=== PATIENT | male | born 1985 | race African-American/Black ===

== ENCOUNTER 2016-12-07 13:15 | Emergency (ER) | payer SELFPAY ==
[2016-12-07 13:27] VITALS: BP 156/101; BMI 28.2
== END 2016-12-07 15:05 | disposition left against medical advice (07) ==
LOC: ER 13:35
DX: M54.2 Cervicalgia (principal)
CPT/HCPCS: 99281

== ENCOUNTER 2016-12-07 22:41 | Emergency (ER) | payer SELFPAY ==
[2016-12-07 22:51] VITALS: BP 140/93; BMI 28.2
--- NOTE | 2016-12-07 23:40 | DR.GENAD ---
HPI - PCP Primary Care Physician: NFD - Complaint/Symptoms Chief Complaint Doctors Comments: Patient states that on yesterday was stung by a bee, took benadryl x2 doses.He denies SOB, wheezing or cough. There was no swelling of the throat. Chief Complaint:: PT STATES" I GOT BEE STUNG THURSDAY ON MY EAR AND IT KEEPS ON SWELLING BACK UP I NEED IT CHECKED OUT" - Source History Provided: Patient - Mode of Arrival Mode of Arrival: Ambulatory - Timing Onset of Chief Complaint: 12/06/16 PMH - PMH Past Medical History: Yes Past Medical History: Anxiety, Hypertension Past Surgical History: No - Family History History of Family Medical Conditions: Yes Family Medical History: Diabetes Mellitus, Hypertension - Social History Do you use any recreational Drugs:: Yes Lives With: Family Lives Where: Home - infectious screening In the last 2 months have you had wt loss of >10#?: NO Have you had fever, night sweats or hemotysis?: No Have you traveled outside the country in the last 6 months?: No Isolation: Standard ROS - Review of Systems Eyes: No Symptoms Reported ENTM: No Symptoms Reported Respiratoy: No Symptoms Reported Cardiovascular: No Symptoms Reported Gastrointestinal/Abdominal: No Symptoms Reported Genitourinary: No Symptoms Reported Neurological: No Symptoms Reported Musculoskeletal: No Symptoms Reported Integumentary: No Symptoms Reported Hematologic/Lymphatic: No Symptoms Reported Endocrine: No Symptoms Reported Psychiatric: No Symptoms Reported All Other Systems: Reviewed and Negative PE - Vital Signs Vitals: Temperature 98.1 F Pulse Rate 81 Respiratory Rate 18 Blood Pressure [Left Arm] 165/83 Blood Pressure 140/93 O2 Sat by Pulse Oximetry 100 - General Limitations: No Limitations General Appearance: Alert, In No Apparent Distress - Head Head Exam: Normal Inspection, Atraumatic - Eyes Eye exam: Normal Appearance, PERRL, EOMI - ENT ENT Exam: Normal Exam External Ear Exam: Normal External Inspection TM/Canal Exam: Bilateral Normal Nose Exam: Normal Nose Exam, Sinus Tenderness Mouth Exam: Normal Inspection Throat Exam: Normal Inspection - Neck Neck Exam: Normal Inspection - Chest Chest Inspection: Normal Inspection - Respiratory Respiratory Exam: Normal Lung Sounds Bilat Respiratory Exam: Bilateral Clear to Auscultation - Cardiovascular Cardiovascular Exam: Regular Rate, Normal Rhythm - Abdominal Exam Abdominal Exam: Normal Inspection, Normal Bowel Sounds Abdominal Tenderness: negative: RUQ, RLQ, LUQ, LLQ, Epigastrium, Suprapubic, Diffuse, Mild, Moderate, Severe, Other - Extremities Extremities Exam: Normal Inspection, Full ROM - Back Back Exam: Normal Inspection, Full ROM - Neurologic Neurological Exam: Alert, Oriented X3, CN II-XII Intact - Psychiatric Psychiatric Exam: Normal Affect - Skin Skin Exam: Warm, Dry, Intact - Diagnosis Discharge Problem: Bee sting Qualifiers: Encounter type: initial encounter Injury intent: accidental or unintentional Qualified Code(s): T63.441A - Toxic effect of venom of bees, accidental ( unintentional), initial encounter - Discharge Plan Condition: Stable - Follow ups/Referrals Follow ups/Referrals: NFD,None [Primary Care Provider] - 3 days - Instructions
== END 2016-12-08 00:21 | disposition home or self-care (01) ==
LOC: ER 22:41
DX: T63.441A Toxic effect of venom of bees, accidental (unintentional), initial encounter (principal)
CPT/HCPCS: 99281; 99282

== ENCOUNTER 2017-06-29 22:31 | Emergency (ER) | payer SELFPAY ==
[2017-06-29 22:40] VITALS: BMI 30.7
[2017-06-29] MEDS ORDERED: HYDROGEN PEROXIDE 3% ONE (22:55)
[2017-06-29] MEDS ORDERED: ZOFRAN INJ 4 MG VIAL IVP ONE (23:19)
[2017-06-29] MEDS ORDERED: NS 1000 ML 1,000 ML IV ONE (23:19)
[2017-06-29] MEDS ORDERED: MORPHINE SULFATE INJ 4 MG IVP ONE (23:19)
[2017-06-29] MEDS ORDERED: NS 1000 ML 1,000 ML ONE (23:20)
[2017-06-29] MEDS ORDERED: ZOFRAN INJ 4 MG VIAL ONE (23:20)
[2017-06-29] MEDS ORDERED: MORPHINE SULFATE INJ 4 MG ONE (23:20)
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
[2017-06-30 00:35] VITALS: BP 162/100
[2017-06-30 00:36] LABS: BASOPHILS % (AUTO) 0.2 % (0.2-1.0); EOSINOPHILS % (AUTO) 0.2 % (0.9-2.9); HEMATOCRIT 44.3 % (42.0-54.0); HEMOGLOBIN 15.1 g/dL (13.5-18.0); LYMPHOCYTES # (AUTO) 1.6 X10^3/uL (1.3-2.9); LYMPHOCYTES % (AUTO) 11.8 % (21.0-51.0); MEAN CORPUSCULAR HEMOGLOBIN 31.5 pg (27.0-34.0); MEAN CORPUSCULAR HGB CONC 34.2 g/dL (33.0-35.0); MEAN CORPUSCULAR VOLUME 92.2 fL (80.0-100.0); MEAN PLATELET VOLUME 7.8 fL (7.4-11.0); MONOCYTES % (AUTO) 7.1 % (0.0-13.0); NEUTROPHILS # (AUTO) 10.9 x10^3/uL (2.2-4.8); NEUTROPHILS % (AUTO) 80.7 % (42.0-75.0); PLATELET COUNT 303 X10^3/uL (150.0-450.0); RED CELL DISTRIBUTION WIDTH 14.4 % (11.6-16.5); WHITE BLOOD COUNT 13.5 X10^3/uL (3.6-10.0)
[2017-06-30 00:48] LABS: ALANINE AMINOTRANSFERASE 24 Units/L (12-78); ALBUMIN 3.9 g/dL (3.4-5.0); ALKALINE PHOSPHATASE 90 Units/L (46-116); ASPARTATE AMINO TRANSFERASE 17 Units/L (15-37); BLOOD UREA NITROGEN 8 mg/dL (7-18); CALCIUM 8.5 mg/dL (8.5-10.1); CARBON DIOXIDE 27.4 mmol/L (21-32); CHLORIDE 103 mmol/L (98-107); SODIUM 141 mmol/L (136-145); TOTAL PROTEIN 8.5 g/dL (6.4-8.2); eGFR BLACK RACES > 60 (>60); eGFR NON BLACK RACES > 60 (>60)
== END 2017-06-30 00:57 | disposition short-term general hospital (02) ==
LOC: ER 22:43
DX: S09.8XXA Other specified injuries of head, initial encounter (principal); S13.9XXA Sprain of joints and ligaments of unspecified parts of neck, initial encounter; S20.212A Contusion of left front wall of thorax, initial encounter; S20.219A Contusion of unspecified front wall of thorax, initial encounter; R07.89 Other chest pain; R10.10 Upper abdominal pain, unspecified; H92.02 Otalgia, left ear; R94.31 Abnormal electrocardiogram [ECG] [EKG]; E04.1 Nontoxic single thyroid nodule; Y04.0XXA Assault by unarmed brawl or fight, initial encounter; Y92.9 Unspecified place or not applicable
CPT/HCPCS: 36415; 70450; 71250; 72125; 74176; 80053; 85025; 93005; 93010; 96365; 96374; 96375; 99284; 99285; A4222; J2270; J2405

== ENCOUNTER 2017-06-30 22:43 | Emergency (ER) | payer SELFPAY ==
[2017-06-30 22:51] VITALS: BP 140/90; BMI 28.2
[2017-06-30] MEDS ORDERED: MORPHINE SULFATE INJ 4 MG IM ONE (23:04)
[2017-06-30] MEDS ORDERED: ZOFRAN INJ 4 MG VIAL IM ONE (23:04)
[2017-06-30] MEDS ORDERED: ZOFRAN INJ 4 MG VIAL ONE (23:05)
[2017-06-30] MEDS ORDERED: MORPHINE SULFATE INJ 4 MG ONE (23:06)
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
== END 2017-07-01 00:15 | disposition home or self-care (01) ==
LOC: ER 22:53
DX: S09.91 Unspecified injury of ear (principal); H92.02 Otalgia, left ear; G50.1 Atypical facial pain; R51 Headache; Y33.XXXA Other specified events, undetermined intent, initial encounter; Y92.9 Unspecified place or not applicable
CPT/HCPCS: 96372; 99282; J2270; J2405

== ENCOUNTER 2017-07-02 09:09 | Emergency (ER) | payer SELFPAY ==
[2017-07-02 09:19] VITALS: BMI 29.8
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
[2017-07-02] MEDS ORDERED: TORADOL 60 MG VIAL IM ONE (09:29)
[2017-07-02] MEDS ORDERED: NORFLEX INJ IM ONE (09:30)
[2017-07-02] MEDS ORDERED: NIFEDIPINE CAP 10 MG PO ONE (09:33)
[2017-07-02] MEDS ORDERED: TORADOL 60 MG VIAL ONE (09:39)
[2017-07-02] MEDS ORDERED: NORFLEX INJ ONE (09:39)
[2017-07-02] MEDS ORDERED: NIFEDIPINE CAP 10 MG ONE (09:40)
--- NOTE | 2017-07-02 10:25 | RAD ---
Examination: Left elbow, three views History: Recent trauma Findings: There is no evidence for fracture, dislocation or synovial distension. Impression: No acute findings left elbow. Reported By:
--- NOTE | 2017-07-02 11:09 | CT ---
HISTORY: Neck pain Study: CT cervical spine without contrast Comparison: None Technique: Multiple axial images of the cervical spine were obtained from the skull base to the thora cic inlet without administration of IV contrast. Sagittal and coronal reformats were performed and r eviewed. Findings: The cervical vertebral body heights are relatively maintained. No evidence for acute cortical disrupt ion or significant subluxation can be seen. The central canal remains free of compromise from bony f ragments. The posterior elements appear unremarkable. The prevertebral soft tissues are normal in t heir appearance. In addition, the surrounding paraspinous soft tissues are unremarkable. If symptoms or clinical concern persist correlation with MRI may be helpful. IMPRESSION: 1. No evidence of acute osseous abnormality is appreciated. Reported By:
[2017-07-02 11:21] VITALS: BP 139/90
== END 2017-07-02 12:00 | disposition home or self-care (01) ==
LOC: ER 09:23
DX: S16.1XXS Strain of muscle, fascia and tendon at neck level, sequela (principal); S13.9XXS Sprain of joints and ligaments of unspecified parts of neck, sequela; S50.00XA Contusion of unspecified elbow, initial encounter; I10 Essential (primary) hypertension; M79.1 Myalgia; Y33.XXXA Other specified events, undetermined intent, initial encounter; Y92.9 Unspecified place or not applicable
CPT/HCPCS: 72125; 73070; 96372; 99282; J1885; J2360

== ENCOUNTER 2023-12-06 23:36 | Observation (INO) ==
[2023-12-06 23:46] VITALS: BMI 33.7
--- NOTE | 2023-12-06 23:55 | EKG ---
Test Reason : Chest pain Blood Pressure : */* mmHG Vent. Rate : 99 BPM Atrial Rate : 99 BPM P-R Int : 116 ms QRS Dur : 84 ms QT Int : 368 ms P-R-T Axes : 69 -15 18 degrees QTc Int : 472 ms Normal sinus rhythm Voltage criteria for left ventricular hypertrophy ( R in aVL , Sokolow-Rodriguez , [place] product ) Abnormal ECG When compared with ECG of 09-JUL-2023 10:18, Nonspecific T wave abnormality now evident in Lateral leads Confirmed by Mike Roque MD ([id number]) on 12/07/2023 6:05:42 AM Referred By: Confirmed By: Mike Roque MD
--- NOTE | 2023-12-07 00:11 | DR.CP ---
HPI Time Seen Time Seen by Provider: 12/07/23 00:10 PCP Primary Care Physician: Melissa Complaint Chief Complaint Doctor Comments: Patient states that he has been having pain in his left chest and rib area. Patient has had a cough productive of green sputum. Patient states that he has a h/o asthma. Patient stats that he has been taking his neb treatments.Patient is also wheezing.Patient states that his chest has been hurting x2 days. Patient denies: fever,n,v,dizziness,lightheadedness,abd pain. Chief Complaint:: pt states" for the past couple of days his left rib area and chest have been hurting. He also has felt chill and has been coughing up green phlegm as well." Self Treatment fo Chief Complaint: none COVID-19 Coronavirus risk:travel/contact w/high risk person: No Has patient experienced Coronavirus symptoms: Yes Coronavirus symptoms experienced: Coughing and Shortness of Breath Source History Provided: Patient and EMS Mode of Arrival Mode of Arrival: EMS Timing Onset of Chief Complaint: 12/04/23 PMH PMH Past Medical History: Yes Past Medical History: Anxiety, Coronary Artery Disease, Diabetes, Dyslipidemia, GERD, Hypertension and Schizophrenia Past Medical History Comment: bipolar Past Surgical History: Yes Surgical History: No History Family History History of Family Medical Conditions: Yes Family Medical History: Diabetes Mellitus, Cancer, Coronary Artery Disease and Hypertension Social History Type of Tobacco Use: Cigarettes Alcohol Use: Occasionally Do you use any recreational Drugs:: No Lives With: Family Lives Where: Home Travel Risk Coronavirus risk:travel/contact w/high risk person: No Has patient experienced Coronavirus symptoms: Yes Coronavirus symptoms experienced: Coughing and Shortness of Breath Infectious screening In the last 2 months have you had wt loss of >10#?: NO Have you had fever, night sweats or hemotysis?: No Have you traveled outside the country in the last 6 months?: No Isolation: Standard ROS Review of Systems Constitutional: No Symptoms Reported Eyes: No Symptoms Reported ENTM: No Symptoms Reported Respiratoy: Productive Cough (green sputum) and Wheezing Cardiovascular: Chest Pain Gastrointestinal/Abdominal: No Symptoms Reported Genitourinary: No Symptoms Reported Neurological: No Symptoms Reported Musculoskeletal: No Symptoms Reported Integumentary: No Symptoms Reported Hematologic/Lymphatic: No Symptoms Reported Endocrine: No Symptoms Reported Psychiatric: No Symptoms Reported All Other Systems: Reviewed and Negative PE Vitals Vitals: Vital Signs Temperature 97.8 F Pulse Rate 84 Pulse Rate 86 Pulse Rate 82 Pulse Rate 97 Pulse Rate 87 Pulse Rate 89 Pulse Rate 86 Pulse Rate 86 Pulse Rate 88 Pulse Rate 98 Pulse Rate 89 Pulse Rate 88 Pulse Rate 88 Pulse Rate 86 Pulse Rate 93 Pulse Rate 90 Pulse Rate 93 Pulse Rate 89 Pulse Rate 91 Pulse Rate 101 Pulse Rate 70 Pulse Rate 73 Pulse Rate 89 Pulse Rate 91 Pulse Rate 89 Pulse Rate 90 Pulse Rate 91 Pulse Rate 98 Pulse Rate 103 Respiratory Rate 20 Blood Pressure [Left Arm] 179/79 Blood Pressure 154/102 Blood Pressure 142/88 Blood Pressure 152/87 Blood Pressure 139/83 Blood Pressure 175/109 Blood Pressure 164/103 Blood Pressure 168/99 Blood Pressure 169/110 Blood Pressure 170/113 Blood Pressure 198/134 Blood Pressure 177/114 Blood Pressure 170/116 Blood Pressure 174/115 Blood Pressure 199/117 O2 Sat by Pulse Oximetry 95 O2 Sat by Pulse Oximetry 95 O2 Sat by Pulse Oximetry 94 O2 Sat by Pulse Oximetry 95 O2 Sat by Pulse Oximetry 93 O2 Sat by Pulse Oximetry 94 O2 Sat by Pulse Oximetry 94 O2 Sat by Pulse Oximetry 95 O2 Sat by Pulse Oximetry 93 O2 Sat by Pulse Oximetry 92 O2 Sat by Pulse Oximetry 98 O2 Sat by Pulse Oximetry 98 O2 Sat by Pulse Oximetry 97 O2 Sat by Pulse Oximetry 98 O2 Sat by Pulse Oximetry 96 O2 Sat by Pulse Oximetry 98 O2 Sat by Pulse Oximetry 99 O2 Sat by Pulse Oximetry 97 O2 Sat by Pulse Oximetry 96 O2 Sat by Pulse Oximetry 98 O2 Sat by Pulse Oximetry 99 O2 Sat by Pulse Oximetry 99 O2 Sat by Pulse Oximetry 97 O2 Sat by Pulse Oximetry 98 O2 Sat by Pulse Oximetry 98 O2 Sat by Pulse Oximetry 96 O2 Sat by Pulse Oximetry 97 O2 Sat by Pulse Oximetry 97 O2 Sat by Pulse Oximetry 96 General Limitations: No Limitations General Appearance: Alert and In No Apparent Distress Head Head Exam: Normal Inspection Eyes Eye exam: Normal Appearance ENT ENT Exam: Normal Exam Chest Chest Inspection: Normal Inspection Respiratory Respiratory Exam: Normal Lung Sounds Bilat Respiratory Exam: Bilateral: Clear to Auscultation Cardiovascular Cardiovascular Exam: Regular Rate and Normal Rhythm Pulse: Normal Edema: Normal Abdominal Exam Abdominal Exam: Normal Inspection, Normal Bowel Sounds and Soft Extremities Extremities Exam: Normal Inspection Back Back Exam: Normal Inspection Neurologic Neurological Exam: Alert and Oriented X3 Psychiatric Psychiatric Exam: Normal Affect and Normal Mood Skin Skin Exam: Warm, Dry, Intact and Normal Color MDM Differential Diagnosis Differential Diagnosis: Chest Wall Pain (DDx: electrolyte disorder,asthma exacerbation), CHF, Myocardial Infarction, Pneumonia and Pulmonary Embolus COURSE Treatment Treatment: Patient was brought to a monitored room and iv access was initiated. Patient's EKG #1 and trp #1/ EKG #2 and trop #2 were neg for acute ischemia, BNP/amylase/lipase are stable, covid-19 panel, wbc, and K are stable.D-dimer was pos. Patient had a Chest CTA. CTA revealed: Rt pleural effusion, and consolid ation Lt mid lung zone.Patient is an asthmatic and received solumedrol 125mg iv and doxycycline 100mg iv. Patient also received a duoneb( albuterol and atrovent). Discussed case with Dr Rodriguez and he accepted patient to his service for further evaluation. [facility] Labs Reviewed 08 00:38 12/07/23 00:38 Laboratory: WBC 11.7 X10^3/uL (3.6-10.0) H 12/07/23 00:38 RBC 4.17 X10^6/uL (4.7-6.0) L 12/07/23 00:38 Hgb 13.1 g/dL (13.5-18.0) L 12/07/23 00:38 Hct 38.6 % (42.0-54.0) L 12/07/23 00:38 MCV 92.6 fL (80.0-100.0) 12/07/23 00:38 MCH 31.4 pg (27.0-34.0) 12/07/23 00:38 MCHC 33.9 g/dL (33.0-35.0) 12/07/23 00:38 RDW 14.5 % (11.6-16.5) 12/07/23 00:38 Plt Count 318 X10^3/uL (150.0-450.0) 12/07/23 00:38 MPV 7.4 fL (7.4-11.0) 12/07/23 00:38 Neut % (Auto) 65.3 % (42.0-75.0) 12/07/23 00:38 Lymph % (Auto) 21.0 % (21.0-51.0) 12/07/23 00:38 [place] % (Auto) 11.2 % (0.0-13.0) 12/07/23 00:38 Eos % (Auto) 1.9 % (0.9-2.9) 12/07/23 00:38 Baso % (Auto) 0.6 % (0.2-1.0) 12/07/23 00:38 Neut # (Auto) 7.6 x10^3/uL (2.2-4.8) H 12/07/23 00:38 Lymph # (Auto) 2.4 X10^3/uL (1.3-2.9) 12/07/23 00:38 [place] # (Auto) 1.3 x10^3/uL (0.3-0.8) H 12/07/23 00:38 Eos # (Auto) 0.2 x10^3/uL (0.0-0.2) 12/07/23 00:38 Baso # (Auto) 0.1 X10^3/uL (0.0-0.1) 12/07/23 00:38 Absolute Nucleated RBC 0.1 /100WBC 12/07/23 00:38 PT 14.3 SECONDS (11.8-14.3) 12/07/23 00:38 INR Target Range - 12/07/23 00:38 INR 1.13 (0.8-1.3) 12/07/23 00:38 APTT 39.3 SECONDS (22.9-36.5) H 12/07/23 00:38 PTT Comment - 12/07/23 00:38 D-Dimer 3.24 ug/ml (0.0-0.57) H 12/07/23 00:38 Sample Site Lr 12/07/23 00:19 ABG pH 7.440 (7.35-7.45) 12/07/23 00:19 ABG pCO2 37.0 mmHg (35.0-45.0) 12/07/23 00:19 ABG pO2 79.0 mmHg (80.0-100.0) L 12/07/23 00:19 ABG HCO3 25.1 mmol/L (22-26) 12/07/23 00:19 ABG O2 Saturation 96.0 % (90-100) 12/07/23 00:19 ABG Base Excess 1.1 mmol/L (-2.0-2.0) 12/07/23 00:19 Rob Test Pos 12/07/23 00:19 A-a Gradient 74.0 mmHg 12/07/23 00:19 FiO2 28.0 12/07/23 00:19 Blood Gas Comments Alex well ae 12/07/23 00:19 Sodium 139 mmol/L (136-145) 12/07/23 00:38 Corrected Sodium TNP 12/07/23 00:38 Potassium 3.3 mmol/L (3.5-5.1) L 12/07/23 00:38 Chloride 104 mmol/L (98-107) 12/07/23 00:38 Carbon Dioxide 25.1 mmol/L (21-32) 12/07/23 00:38 BUN 11 mg/dL (7-18) 12/07/23 00:38 Creatinine 1.22 mg/dL (0.70-1.30) 12/07/23 00:38 Est GFR (MDRD) Af Amer > 60 (>60) 12/07/23 00:38 Est GFR (MDRD) Non-Af > 60 (>60) 12/07/23 00:38 Glucose 104 mg/dL (65-99) H 12/07/23 00:38 Calcium 8.7 mg/dL (8.5-10.1) 12/07/23 00:38 Corrected Calcium 9.7 mg/dL (8.5-10.1) 12/07/23 00:38 Total Bilirubin 0.20 mg/dL (0.2-1.0) 12/07/23 00:38 AST 16 Units/L (15-37) 12/07/23 00:38 ALT 20 Units/L (12-78) 12/07/23 00:38 Alkaline Phosphatase 98 Units/L (46-116) 12/07/23 00:38 Creatine Kinase 216 Units/L (39-308) 12/07/23 00:38 Troponin I High Sens 16.3 ng/L (4.0-60.0) 12/07/23 06:08 B-Natriuretic Peptide 5.3 pg/mL (0-79) 12/07/23 00:38 Total Protein 8.1 g/dL (6.4-8.2) 12/07/23 00:38 Albumin 2.7 g/dL (3.4-5.0) L 12/07/23 00:38 Globulin 5.4 g/dL (2.5-4.5) H 12/07/23 00:38 Albumin/Globulin Ratio 0.5 Ratio (1.1-2.1) L 12/07/23 00:38 Amylase 61 Units/L (25-115) 12/07/23 00:38 Lipase 34 Units/L (16-77) 12/07/23 00:38 SARS-CoV-2 (PCR) Negative (NEGATIVE) 12/07/23 00:05 Influenza Type A (PCR) Negative (NEGATIVE) 12/07/23 00:05 Influenza Type B (PCR) Negative (NEGATIVE) 12/07/23 00:05 RSV (PCR) Negative (NEGATIVE) 12/07/23 00:05 Opioid Opioid Risk Tool Age (Reyes box if 16-45): Yes History of Preadolescent Sexual Abuse: No Total: 1 Total Score Risk Category: Low Risk Copyright: Obie GLOVER predicting aberrant behaviors Discharge Plan Diagnosis Discharge Problem: Asthma exacerbation, Pleural effusion on right, Pneumonia involving left lung Discharge Plan Patient Disposition: ADMITTED INPATIENT Condition: Stable Orders to Discharge Patient Discharge Orders: Transfer (Routine); Ordered 12/07/23 Ordered By: Gricel Cortez
[2023-12-07 00:24] LABS: ABG BASE EXCESS 1.1 mmol/L (-2.0-2.0); ABG HCO3 25.1 mmol/L (22-26)
[2023-12-07 00:25] LABS: ABG ALLEN TEST POS
[2023-12-07 01:12] LABS: INR 1.13 (0.8-1.3)
[2023-12-07 01:42] LABS: BASOPHILS # (AUTO) 0.1 X10^3/uL (0.0-0.1); BASOPHILS % (AUTO) 0.6 % (0.2-1.0); EOSINOPHILS # (AUTO) 0.2 x10^3/uL (0.0-0.2); EOSINOPHILS % (AUTO) 1.9 % (0.9-2.9); HEMATOCRIT 38.6 % (42.0-54.0); HEMOGLOBIN 13.1 g/dL (13.5-18.0); LYMPHOCYTES # (AUTO) 2.4 X10^3/uL (1.3-2.9); MEAN CORPUSCULAR HEMOGLOBIN 31.4 pg (27.0-34.0); MEAN CORPUSCULAR HGB CONC 33.9 g/dL (33.0-35.0); MEAN CORPUSCULAR VOLUME 92.6 fL (80.0-100.0); MEAN PLATELET VOLUME 7.4 fL (7.4-11.0); MONOCYTES # (AUTO) 1.3 x10^3/uL (0.3-0.8); MONOCYTES % (AUTO) 11.2 % (0.0-13.0); NEUTROPHILS # (AUTO) 7.6 x10^3/uL (2.2-4.8); NEUTROPHILS % (AUTO) 65.3 % (42.0-75.0); PLATELET COUNT 318 X10^3/uL (150.0-450.0); RED BLOOD COUNT 4.17 X10^6/uL (4.7-6.0); RED CELL DISTRIBUTION WIDTH 14.5 % (11.6-16.5); WHITE BLOOD COUNT 11.7 X10^3/uL (3.6-10.0)
[2023-12-07 01:53] LABS: ALANINE AMINOTRANSFERASE 20 Units/L (12-78); ALBUMIN 2.7 g/dL (3.4-5.0); ALKALINE PHOSPHATASE 98 Units/L (46-116); AMYLASE 61 Units/L (25-115); ASPARTATE AMINO TRANSFERASE 16 Units/L (15-37); BLOOD UREA NITROGEN 11 mg/dL (7-18); CALCIUM 8.7 mg/dL (8.5-10.1); CARBON DIOXIDE 25.1 mmol/L (21-32); CHLORIDE 104 mmol/L (98-107); COR CA(FOR HYPOALB) 9.7 mg/dL (8.5-10.1); CREATINE KINASE 216 Units/L (39-308); CREATININE 1.22 mg/dL (0.70-1.30); GLUCOSE 104 mg/dL (65-99); LIPASE 34 Units/L (16-77); POTASSIUM 3.3 mmol/L (3.5-5.1); SODIUM 139 mmol/L (136-145); TOTAL PROTEIN 8.1 g/dL (6.4-8.2); eGFR NON BLACK RACES > 60 (>60)
--- NOTE | 2023-12-07 02:44 | EKG ---
Test Reason : Cp Blood Pressure : */* mmHG Vent. Rate : 88 BPM Atrial Rate : 88 BPM P-R Int : 122 ms QRS Dur : 94 ms QT Int : 372 ms P-R-T Axes : 74 -6 23 degrees QTc Int : 450 ms Normal sinus rhythm Voltage criteria for left ventricular hypertrophy ( R in aVL , Sokolow-Rodriguez , [place] product ) Abnormal ECG When compared with ECG of 06-DEC-2023 23:52, (Unconfirmed) No significant change was found Confirmed by Mike Roque MD ([id number]) on 12/07/2023 6:05:12 AM Referred By: Confirmed By: Mike Roque MD
[2023-12-07] MEDS: DUONEB 0.5 MG/3 MG (3 mL) NEB ONE ×2 (03:19→08:02)
[2023-12-07] MEDS: CATAPRES TAB 0.2 MG PO ONE (03:26)
[2023-12-07] MEDS: VIBRAMYCIN 100 MG in D5W 250 ML IV 250 ML IV ONE (03:30)
[2023-12-07] MEDS: SOLU-Medrol 125 MG VIAL IVP ONE (04:34)
--- NOTE | 2023-12-07 05:21 | CT ---
EXAM: CTA CHEST WITH CONTRAST HISTORY: elevated d dimer; COMPARISON: None. TECHNIQUE: Axial images were acquired of the chest with IV contrast for a CT angiogram. Coronal and sagittal brandon ges were provided. All images were reviewed in a variety of windows and levels. 3D 8 mm thick MIPS im ages were provided. RADIATION REDUCTION TECHNIQUE: Automated exposure control, Adjustment of the mA and/or kV according t o patient size, or iterative reconstruction techniques were used. 8 mm thick axial MIPS images were p rovided. FINDINGS: CHEST: THYROID GLAND: The thyroid gland is unremarkable. HEART AND VESSELS: The heart size is within normal limits. There is no evidence of a pericardial effu ailyn. The thoracic aorta is normal in size without evidence of aneurysm or dissection. The main pulmo nary artery size is within normal limits. Exam is markedly limited due to bolus timing. There is no e vidence of a pulmonary embolism in the main pulmonary artery, right pulmonary artery, and left pulmon bebo artery. Distal emboli beyond these points can not be accurately assessed on this examination. Ple ase note that this exam is considered markedly limited and therefore close monitoring with follow up imaging may be obtained as a clinically indicated. LYMPHNODES: There is no evidence of axillary, mediastinal, or hilar lymphadenopathy, AIRWAY: The trachea and mainstem bronchi are patent. No intraluminal lesions are seen. LUNGS: There is a moderate size right-sided pleural effusion. No left-sided pleural effusion is seen . No evidence of pneumothorax. Focus of consolidation is seen in the left mid lung zone. ESOPHAGUS: The esophagus is grossly unremarkable. BONES: The visualized bones demonstrate degenerative changes. There are no concerning lytic or blasti c lesions identified. UPPER ABDOMINAL STRUCTURES: The visualized portions of the upper abdominal structures are unremarkabl e. IMPRESSION: 1. Exam is markedly limited due to bolus timing. There is no evidence of a pulmonary embolism in the main pulmonary artery, right pulmonary artery, and left pulmonary artery. Distal emboli beyond these points can not be accurately assessed on this examination. Please note that this exam is considered m arkedly limited and therefore close monitoring with follow up imaging may be obtained as a clinically indicated. 2. There is a moderate size right-sided pleural effusion. 3. Focus of consolidation is seen in the left mid lung zone. This may represent acute or chronic airs pace disease. Follow-up to complete resolution may be obtained as clinically indicated. THIS IS AN ELECTRONICALLY VERIFIED FINAL REPORT 12/07/2023 5:17 AM - Electronically signed by Kamaljit Garcia MD
--- NOTE | 2023-12-07 07:14 | RAD ---
EXAM:CHEST, 1 VIEWHISTORY:sob x 3 days;COMPARISON:07/09/2023FINDINGS:The cardiomediastinal silhouette is stable.No acute airspace disease. No pneumothorax. Small right-sided effusion.No acute osseous abnormality.IMPRESSION:Right-sided pleural effusion. No focal consolidation.THIS IS AN ELECTRONICALLY VERIFIED FINAL REPORT12/07/2023 7:11 AM - Electronically signed by Jose Martin Rico MD
[2023-12-07] MEDS: PULMICORT NEB TX 0.5 MG NEB ONE (08:02)
[2023-12-07] MEDS: CONSULT PHARMACY - POTASSIUM & MAGNESIUM XX SCH (08:02)
[2023-12-07] MEDS: PULMICORT NEB TX 0.5 MG NEB SCH (08:25)
--- NOTE | 2023-12-07 08:53 | DR.H&P ---
H&P History & Physical for Day of: H&P Date: 12/07/23 Chief Complaint Chief Complaint: Chest pain History of Present Illness History of Present Illness: Patient with a long history of asthma and cigarette use presented to ER from home with 2 days of worsening chest pain and shortness of breath. Has been progressing over the past week. His home medications have not been helping. In the ER he was found to be hypoxic, leukocytotic, and tachypneic. Was also found to have mild tachycardia. Imaging revealed a right pleural effusion with a left lower lobe pneumonia. He was admitted for treatment of his sepsis secondary to community-acquired pneumonia along with an asthma exacerbation. He currently reports he feels a little more comfortable on oxygen but still hurting on both sides of his chest and still feels short of breath with activity and speaking. Denies nausea, vomiting, headache, vision changes, rash, numbness/tingling, or bowel or bladder habit changes. Past medical history reviewed. Vitals reviewed. ROS: 12 point ROS negative except as noted in HPI. PE: WD, WN male in NAD. Head NCAT. Hearing intact conversation. EOMI. Heart sinus tach. Lungs with wheezing throughout, absent at the right base, rhonchi at the left base. Belly is soft, NT, ND, with present bowel sounds. Mood & affect appropriate. Past Medical History Past Medical History: Anxiety, Coronary Artery Disease, Diabetes, Dyslipidemia, GERD, Hypertension and Schizophrenia Past Surgical History Surgical History: No History Family History Family Medical History: Diabetes Mellitus, Cancer, Coronary Artery Disease and Hypertension Social History Type of Tobacco Use: Cigarettes Alcohol Use: Occasionally Medications Home Medications: Home Medications Medication Instructions Recorded Confirmed Type aspirin 81 mg chewable tablet 81 mg PO QDAY 05/26/23 12/06/23 History albuterol sulfate 2.5 mg/3 mL 2.5 mg continuous nebulization Q6H 12/06/23 12/06/23 History (0.083 %) solution for nebulization amlodipine 5 mg tablet 5 mg PO BID 12/06/23 12/06/23 History atorvastatin 40 mg tablet 40 mg PO QDAY 12/06/23 12/06/23 History dulaglutide 0.75 mg/0.5 mL 0.75 mg subcut QWEEK 12/06/23 12/06/23 History subcutaneous pen injector ([facility]) fluticasone 100 mcg-salmeterol 50 1 ea inhalation BID 12/06/23 12/06/23 History mcg/dose blistr powdr for inhalation hydralazine 25 mg tablet 25 mg PO TID 12/06/23 12/06/23 History losartan 25 mg tablet 25 mg PO QDAY 12/06/23 12/06/23 History metformin 500 mg tablet 500 mg PO BID 12/06/23 12/06/23 History metoprolol succinate 100 mg 100 mg PO BID 12/06/23 12/06/23 History tablet,extended release 24 hr rosuvastatin 40 mg tablet 40 mg PO QDAY 12/06/23 12/06/23 History tamsulosin 0.4 mg capsule 0.4 mg PO QDAY 12/06/23 12/06/23 History trazodone 100 mg tablet 200 mg PO QPM PRN 12/06/23 12/06/23 History Allergies Allergies Allergy/AdvReac Type Severity Reaction Status Date / Time Penicillins Allergy Verified 12/06/23 23:44 Labs 12/07/23 00:38 12/07/23 00:38 Labs: Laboratory WBC 11.7 X10^3/uL (3.6-10.0) H 12/07/23 00:38 RBC 4.17 X10^6/uL (4.7-6.0) L 12/07/23 00:38 Hgb 13.1 g/dL (13.5-18.0) L 12/07/23 00:38 Hct 38.6 % (42.0-54.0) L 12/07/23 00:38 MCV 92.6 fL (80.0-100.0) 12/07/23 00:38 MCH 31.4 pg (27.0-34.0) 12/07/23 00:38 MCHC 33.9 g/dL (33.0-35.0) 12/07/23 00:38 RDW 14.5 % (11.6-16.5) 12/07/23 00:38 Plt Count 318 X10^3/uL (150.0-450.0) 12/07/23 00:38 MPV 7.4 fL (7.4-11.0) 12/07/23 00:38 Neut % (Auto) 65.3 % (42.0-75.0) 12/07/23 00:38 Lymph % (Auto) 21.0 % (21.0-51.0) 12/07/23 00:38 [place] % (Auto) 11.2 % (0.0-13.0) 12/07/23 00:38 Eos % (Auto) 1.9 % (0.9-2.9) 12/07/23 00:38 Baso % (Auto) 0.6 % (0.2-1.0) 12/07/23 00:38 Neut # (Auto) 7.6 x10^3/uL (2.2-4.8) H 12/07/23 00:38 Lymph # (Auto) 2.4 X10^3/uL (1.3-2.9) 12/07/23 00:38 [place] # (Auto) 1.3 x10^3/uL (0.3-0.8) H 12/07/23 00:38 Eos # (Auto) 0.2 x10^3/uL (0.0-0.2) 12/07/23 00:38 Baso # (Auto) 0.1 X10^3/uL (0.0-0.1) 12/07/23 00:38 Absolute Nucleated RBC 0.1 /100WBC 12/07/23 00:38 PT 14.3 SECONDS (11.8-14.3) 12/07/23 00:38 INR Target Range - 12/07/23 00:38 INR 1.13 (0.8-1.3) 12/07/23 00:38 APTT 39.3 SECONDS (22.9-36.5) H 12/07/23 00:38 PTT Comment - 12/07/23 00:38 D-Dimer 3.24 ug/ml (0.0-0.57) H 12/07/23 00:38 Sample Site Lr 12/07/23 00:19 ABG pH 7.440 (7.35-7.45) 12/07/23 00:19 ABG pCO2 37.0 mmHg (35.0-45.0) 12/07/23 00:19 ABG pO2 79.0 mmHg (80.0-100.0) L 12/07/23 00:19 ABG HCO3 25.1 mmol/L (22-26) 12/07/23 00:19 ABG O2 Saturation 96.0 % (90-100) 12/07/23 00:19 ABG Base Excess 1.1 mmol/L (-2.0-2.0) 12/07/23 00:19 Rob Test Pos 12/07/23 00:19 A-a Gradient 74.0 mmHg 12/07/23 00:19 FiO2 28.0 12/07/23 00:19 Blood Gas Comments Alex well ae 12/07/23 00:19 Sodium 139 mmol/L (136-145) 12/07/23 00:38 Corrected Sodium TNP 12/07/23 00:38 Potassium 3.3 mmol/L (3.5-5.1) L 12/07/23 00:38 Chloride 104 mmol/L (98-107) 12/07/23 00:38 Carbon Dioxide 25.1 mmol/L (21-32) 12/07/23 00:38 BUN 11 mg/dL (7-18) 12/07/23 00:38 Creatinine 1.22 mg/dL (0.70-1.30) 12/07/23 00:38 Est GFR (MDRD) Af Amer > 60 (>60) 12/07/23 00:38 Est GFR (MDRD) Non-Af > 60 (>60) 12/07/23 00:38 Glucose 104 mg/dL (65-99) H 12/07/23 00:38 Calcium 8.7 mg/dL (8.5-10.1) 12/07/23 00:38 Corrected Calcium 9.7 mg/dL (8.5-10.1) 12/07/23 00:38 Total Bilirubin 0.20 mg/dL (0.2-1.0) 12/07/23 00:38 AST 16 Units/L (15-37) 12/07/23 00:38 ALT 20 Units/L (12-78) 12/07/23 00:38 Alkaline Phosphatase 98 Units/L (46-116) 12/07/23 00:38 Creatine Kinase 216 Units/L (39-308) 12/07/23 00:38 Troponin I High Sens 16.3 ng/L (4.0-60.0) 12/07/23 06:08 B-Natriuretic Peptide 5.3 pg/mL (0-79) 12/07/23 00:38 Total Protein 8.1 g/dL (6.4-8.2) 12/07/23 00:38 Albumin 2.7 g/dL (3.4-5.0) L 12/07/23 00:38 Globulin 5.4 g/dL (2.5-4.5) H 12/07/23 00:38 Albumin/Globulin Ratio 0.5 Ratio (1.1-2.1) L 12/07/23 00:38 Amylase 61 Units/L (25-115) 12/07/23 00:38 Lipase 34 Units/L (16-77) 12/07/23 00:38 SARS-CoV-2 (PCR) Negative (NEGATIVE) 12/07/23 00:05 Influenza Type A (PCR) Negative (NEGATIVE) 12/07/23 00:05 Influenza Type B (PCR) Negative (NEGATIVE) 12/07/23 00:05 RSV (PCR) Negative (NEGATIVE) 12/07/23 00:05 Physical Exam Vital Signs: Vital Signs Pulse Rate 84 Pulse Rate 86 Pulse Rate 82 Pulse Rate 97 Pulse Rate 87 Pulse Rate 89 Pulse Rate 86 Pulse Rate 86 Pulse Rate 88 Pulse Rate 98 Pulse Rate 89 Pulse Rate 88 Pulse Rate 88 Pulse Rate 86 Pulse Rate 93 Pulse Rate 90 Pulse Rate 93 Pulse Rate 89 Pulse Rate 91 Pulse Rate 101 Pulse Rate 70 Pulse Rate 73 Pulse Rate 89 Pulse Rate 91 Pulse Rate 89 Pulse Rate 90 Pulse Rate 91 Pulse Rate 98 Blood Pressure [Left Arm] 179/79 Blood Pressure 154/102 Blood Pressure 142/88 Blood Pressure 152/87 Blood Pressure 139/83 Blood Pressure 175/109 Blood Pressure 164/103 Blood Pressure 168/99 Blood Pressure 169/110 Blood Pressure 170/113 Blood Pressure 198/134 Blood Pressure 177/114 Blood Pressure 170/116 Blood Pressure 174/115 O2 Sat by Pulse Oximetry 95 O2 Sat by Pulse Oximetry 95 O2 Sat by Pulse Oximetry 94 O2 Sat by Pulse Oximetry 95 O2 Sat by Pulse Oximetry 93 O2 Sat by Pulse Oximetry 94 O2 Sat by Pulse Oximetry 94 O2 Sat by Pulse Oximetry 95 O2 Sat by Pulse Oximetry 93 O2 Sat by Pulse Oximetry 92 O2 Sat by Pulse Oximetry 98 O2 Sat by Pulse Oximetry 98 O2 Sat by Pulse Oximetry 97 O2 Sat by Pulse Oximetry 98 O2 Sat by Pulse Oximetry 96 O2 Sat by Pulse Oximetry 98 O2 Sat by Pulse Oximetry 99 O2 Sat by Pulse Oximetry 97 O2 Sat by Pulse Oximetry 96 O2 Sat by Pulse Oximetry 98 O2 Sat by Pulse Oximetry 99 O2 Sat by Pulse Oximetry 99 O2 Sat by Pulse Oximetry 97 O2 Sat by Pulse Oximetry 98 O2 Sat by Pulse Oximetry 98 O2 Sat by Pulse Oximetry 96 O2 Sat by Pulse Oximetry 97 O2 Sat by Pulse Oximetry 97 Assessment/Plan (1) Severe sepsis: Narrative Support Text: HR, WBCs, RR. PNA. resp failure. P.o. Decadron, IV Doxy, DuoNebs scheduled. Incentive spirometry. Status: Acute (2) Pneumonia involving left lung: Qualifiers: Lung location: lower lobe of lung Pneumonia type: due to unspecified organism Qualified Code(s): J18.9 - Pneumonia, unspecified organism Narrative Support Text: See above. Status: Acute (3) Pleural effusion on right: Narrative Support Text: Monitor. Plan on repeating a chest x-ray daily. Status: Acute (4) Asthma exacerbation: Qualifiers: Asthma severity: unspecified severity Asthma persistence: unspecified Qualified Code(s): J45.901 - Unspecified asthma with (acute) exacerbation Narrative Support Text: Unknown asthma history. Decadron and DuoNebs. Status: Acute (5) Acute hypoxemic respiratory failure: Narrative Support Text: See above. O2 supplementation. Status: Acute (6) Hyperlipidemia: Qualifiers: Hyperlipidemia type: mixed hyperlipidemia Qualified Code(s): E78.2 - Mixed hyperlipidemia Narrative Support Text: Continue statin. Status: Acute (7) Hypertensive heart disease: Qualifiers: Heart failure presence: with heart failure Heart failure type: diastolic Heart failure chronicity: chronic Qualified Code(s): I11.0 - Hypertensive heart disease with heart failure; I50.32 - Chronic diastolic (congestive) heart failure Narrative Support Text: Will hold beta-roseanna but continue all other home meds. Will slowly Riyad beta-roseanna based on respiratory status. Status: Acute (8) Diabetes: Qualifiers: Diabetes mellitus type: type 2 Diabetes mellitus skilled nursing insulin use: without middle or intermediate school principal use Diabetes mellitus complication status: with hyperglycemia Qualified Code(s): E11.65 - Type 2 diabetes mellitus with hyperglycemia Narrative Support Text: SSI. Continue home medications. Status: Acute (9) Smoker: Narrative Support Text: Nicotine replacement. Smoking cessation Status: Acute
[2023-12-07] MEDS ORDERED: VIBRAMYCIN 100 MG in D5W 250 ML IV 250 ML IV SCH (09:00)
[2023-12-07] MEDS ORDERED: TOPROL XL PO SCH (09:00)
[2023-12-07] MEDS ORDERED: PATIENT'S HOME MEDICATION (Rosuvastatin 40 mg tablet) PO SCH (09:00)
[2023-12-07] MEDS ORDERED: PATIENT'S HOME MEDICATION (Losartan 25 mg tablet) PO SCH (09:00)
[2023-12-07] MEDS ORDERED: DUONEB 0.5 MG/3 MG (3 mL) NEB SCH (09:00)
[2023-12-07] MEDS: LIPITOR TAB 40 MG PO SCH (09:20)
[2023-12-07] MEDS: VIBRAMYCIN 100 MG in D5W 250 ML IV 250 ML IV SCH (09:31)
[2023-12-07] MEDS: K-DUR TAB 20 MEQ PO NR (09:31)
[2023-12-07] MEDS: NORVASC TAB 5 MG PO SCH (09:32)
[2023-12-07] MEDS: FLOMAX PO SCH (09:32)
[2023-12-07] MEDS: COZAAR PO SCH (09:32)
[2023-12-07] MEDS: ASPIRIN 81 MG CHEWTAB PO SCH (09:32)
[2023-12-07] MEDS: DECADRON TAB PO SCH (09:32)
[2023-12-07] MEDS: ZITHROMAX INJ 500 MG VIAL 500 MG in NS 250 ML IV 250 ML IV SCH (09:50)
[2023-12-07] MEDS: DUONEB 0.5 MG/3 MG (3 mL) NEB SCH (12:35)
[2023-12-07] MEDS: COZAAR PO ONE (13:04)
[2023-12-07] MEDS: NovoLIN R (or HumuLIN R) SUBCUT PRN (13:25)
[2023-12-07] MEDS: APRESOLINE TAB 25 MG PO SCH (13:26)
[2023-12-07] MEDS ORDERED: SOLU-Medrol 40 MG VIAL IVP SCH (14:00)
[2023-12-07] MEDS: CATAPRES TAB 0.1 MG PO ONE (16:20)
[2023-12-07] MEDS: SNACK - Diabetic Appropriate PO SCH (20:00)
[2023-12-07] MEDS ORDERED: NS 250 ML IV 250 ML IV ONE (20:58)
[2023-12-07] MEDS: NS 250 ML IV 250 ML IV PRN (21:05)
[2023-12-07] MEDS: DESYREL PO SCH (21:07)
[2023-12-08 06:09] LABS: ALANINE AMINOTRANSFERASE 26 Units/L (12-78); ALBUMIN 2.5 g/dL (3.4-5.0); ALKALINE PHOSPHATASE 111 Units/L (46-116); ASPARTATE AMINO TRANSFERASE 17 Units/L (15-37); BLOOD UREA NITROGEN 12 mg/dL (7-18); CALCIUM 8.9 mg/dL (8.5-10.1); CARBON DIOXIDE 24.4 mmol/L (21-32); CHLORIDE 105 mmol/L (98-107); COR CA(FOR HYPOALB) 10.1 mg/dL (8.5-10.1); COR NA(FOR HYPERGLY) 140 mmol/L (136-145); CREATININE 1.15 mg/dL (0.70-1.30); GLUCOSE 147 mg/dL (65-99); MAGNESIUM 1.6 mg/dL (2.0-2.9); POTASSIUM 3.7 mmol/L (3.5-5.1); SODIUM 139 mmol/L (136-145); TOTAL PROTEIN 7.4 g/dL (6.4-8.2); eGFR NON BLACK RACES > 60 (>60)
[2023-12-08 06:22] LABS: HEMOGLOBIN 11.9 g/dL (13.5-18.0); RED CELL DISTRIBUTION WIDTH 14.5 % (11.6-16.5)
[2023-12-08 06:28] LABS: BASOPHILS # (AUTO) 0.5 X10^3/uL (0.0-0.1); BASOPHILS % (AUTO) 2.3 % (0.2-1.0); EOSINOPHILS % (AUTO) 0.1 % (0.9-2.9); HEMATOCRIT 34.9 % (42.0-54.0); LYMPHOCYTES % (AUTO) 4.6 % (21.0-51.0); MEAN CORPUSCULAR HEMOGLOBIN 32.2 pg (27.0-34.0); MEAN CORPUSCULAR HGB CONC 34.2 g/dL (33.0-35.0); MEAN CORPUSCULAR VOLUME 94.1 fL (80.0-100.0); MEAN PLATELET VOLUME 7.6 fL (7.4-11.0); MONOCYTES # (AUTO) 1.5 x10^3/uL (0.3-0.8); MONOCYTES % (AUTO) 7.1 % (0.0-13.0); NEUTROPHILS # (AUTO) 18.1 x10^3/uL (2.2-4.8); NEUTROPHILS % (AUTO) 85.9 % (42.0-75.0); PLATELET COUNT 357 X10^3/uL (150.0-450.0); RED BLOOD COUNT 3.71 X10^6/uL (4.7-6.0)
[2023-12-08] MEDS ORDERED: CONSULT PHARMACY - POTASSIUM & MAGNESIUM XX SCH (07:00)
[2023-12-08 07:06] LABS: WHITE BLOOD COUNT 21.1 X10^3/uL (3.6-10.0)
[2023-12-08 07:07] LABS: BAND NEUTROPHILS % 3 % (0-10); BASOPHILS % (MANUAL) 1 % (0-1); PLATELET MORPHOLOGY COMMENT NORMAL (NORMAL)
[2023-12-08] MEDS: COZAAR PO SCH (09:29)
[2023-12-08] MEDS: MAG-OX TAB PO SCH (09:30)
[2023-12-08] MEDS: K-DUR TAB 20 MEQ PO SCH (09:30)
--- NOTE | 2023-12-08 09:30 | NOTE.SOAP ---
Soap Note Note for Day of Date of Exam: 12/08/23 Subjective Data Subjective Data: Patient seen for morning rounds. Spoke to on phone. Patient reports he is feeling somewhat better but still easily dyspneic when ambulating around room. He is wearing his nasal cannula. No acute events overnight. Objective Data Objective Data: WD, WN male in NAD. Head NCAT. Hearing grossly intact. Mood affect appropriate. Heart regular rate and rhythm. Lungs with wheezing throughout and crackles at bases. Belly is soft, NT, ND, BS positive. Assessment Assessment: 1. Severe sepsis-resolving. Continue current. Continue to monitor. 2. Left lower lobe pneumonia-stable. Continue current. Status: Acute 3. Right pleural effusion-stable. Repeat chest x-ray. 4. Asthma exacerbation-improving. Unknown baseline. Continue current. 5. Acute hypoxemic respiratory failure-stable. Continue O2 supplementation.
[2023-12-09 06:51] LABS: BASOPHILS # (AUTO) 0.1 X10^3/uL (0.0-0.1); BASOPHILS % (AUTO) 0.3 % (0.2-1.0); EOSINOPHILS % (AUTO) 0.1 % (0.9-2.9); HEMATOCRIT 31.9 % (42.0-54.0); HEMOGLOBIN 11.4 g/dL (13.5-18.0); LYMPHOCYTES # (AUTO) 1.7 X10^3/uL (1.3-2.9); LYMPHOCYTES % (AUTO) 10.1 % (21.0-51.0); MEAN CORPUSCULAR HEMOGLOBIN 35.7 pg (27.0-34.0); MEAN CORPUSCULAR HGB CONC 35.7 g/dL (33.0-35.0); MEAN PLATELET VOLUME 7.5 fL (7.4-11.0); MONOCYTES # (AUTO) 1.2 x10^3/uL (0.3-0.8); NEUTROPHILS # (AUTO) 13.6 x10^3/uL (2.2-4.8); NEUTROPHILS % (AUTO) 82.5 % (42.0-75.0); PLATELET COUNT 348 X10^3/uL (150.0-450.0); RED BLOOD COUNT 3.19 X10^6/uL (4.7-6.0); RED CELL DISTRIBUTION WIDTH 14.6 % (11.6-16.5); WHITE BLOOD COUNT 16.5 X10^3/uL (3.6-10.0)
[2023-12-09 07:07] LABS: ALANINE AMINOTRANSFERASE 28 Units/L (12-78); ALBUMIN 2.4 g/dL (3.4-5.0); ALKALINE PHOSPHATASE 110 Units/L (46-116); ASPARTATE AMINO TRANSFERASE 13 Units/L (15-37); BLOOD UREA NITROGEN 9 mg/dL (7-18); CALCIUM 8.3 mg/dL (8.5-10.1); CARBON DIOXIDE 23.7 mmol/L (21-32); CHLORIDE 104 mmol/L (98-107); COR CA(FOR HYPOALB) 9.6 mg/dL (8.5-10.1); COR NA(FOR HYPERGLY) 140 mmol/L (136-145); CREATININE 1.01 mg/dL (0.70-1.30); GLUCOSE 164 mg/dL (65-99); POTASSIUM 3.6 mmol/L (3.5-5.1); SODIUM 138 mmol/L (136-145); TOTAL PROTEIN 6.9 g/dL (6.4-8.2); eGFR NON BLACK RACES > 60 (>60)
[2023-12-09 07:38] LABS: BAND NEUTROPHILS % 2 % (0-10); PLATELET MORPHOLOGY COMMENT NORMAL (NORMAL)
[2023-12-09] MEDS: MAG-OX TAB PO SCH (09:28)
[2023-12-09] MEDS: K-DUR TAB 20 MEQ PO SCH (09:28)
[2023-12-09] MEDS: ALDACTONE TAB 25 MG PO SCH (09:30)
[2023-12-09] MEDS: VIBRAMYCIN PO SCH (10:18)
--- NOTE | 2023-12-09 10:23 | NOTE.SOAP ---
Soap Note Note for Day of Date of Exam: 12/09/23 Subjective Data Subjective Data: Patient seen for morning rounds. Reports his breathing does seem to be better but he hears his wheezing more. AIT came back positive for group B strep and mycoplasma pneumonia. They are both sensitive to Doxy. Labs overall stable with improved white count but elevated blood pressure. Chest x-ray pending for this morning. Objective Data Objective Data: WD, WN male in NAD. Head NCAT. Hearing intact conversation. Speech is clear. Heart RRR. Lungs with improved aeration, normal chest expansion, clear speech, and diffuse wheezing. Belly soft, NT/ND, with bowel sounds present. Mood and affect appropriate. Assessment Assessment: 1. Community-acquired pneumonia due to Mycoplasma pneumoniae and group B strep. Continue doxycycline but switch to p.o. today. Continue steroids and nebs. 2. Acute hypoxemic resp failure- O2 supplementation. 3. Severe sepsis-improving. See above. 4. HTN. add Aldactone.
[2023-12-10 04:13] VITALS: O2SAT 95
[2023-12-10 06:33] LABS: BASOPHILS # (AUTO) 0.1 X10^3/uL (0.0-0.1); BASOPHILS % (AUTO) 0.5 % (0.2-1.0); EOSINOPHILS % (AUTO) 0.1 % (0.9-2.9); HEMATOCRIT 34.1 % (42.0-54.0); HEMOGLOBIN 11.7 g/dL (13.5-18.0); LYMPHOCYTES # (AUTO) 2.4 X10^3/uL (1.3-2.9); MEAN CORPUSCULAR HGB CONC 34.3 g/dL (33.0-35.0); MEAN CORPUSCULAR VOLUME 96.2 fL (80.0-100.0); MEAN PLATELET VOLUME 7.3 fL (7.4-11.0); MONOCYTES # (AUTO) 1.7 x10^3/uL (0.3-0.8); MONOCYTES % (AUTO) 10.1 % (0.0-13.0); NEUTROPHILS # (AUTO) 12.9 x10^3/uL (2.2-4.8); NEUTROPHILS % (AUTO) 75.3 % (42.0-75.0); PLATELET COUNT 371 X10^3/uL (150.0-450.0); RED BLOOD COUNT 3.54 X10^6/uL (4.7-6.0); RED CELL DISTRIBUTION WIDTH 14.5 % (11.6-16.5); WHITE BLOOD COUNT 17.1 X10^3/uL (3.6-10.0)
[2023-12-10 06:51] LABS: ALANINE AMINOTRANSFERASE 32 Units/L (12-78); ALBUMIN 2.6 g/dL (3.4-5.0); ALKALINE PHOSPHATASE 112 Units/L (46-116); ASPARTATE AMINO TRANSFERASE 13 Units/L (15-37); BLOOD UREA NITROGEN 10 mg/dL (7-18); CALCIUM 8.5 mg/dL (8.5-10.1); CARBON DIOXIDE 26.6 mmol/L (21-32); CHLORIDE 102 mmol/L (98-107); COR CA(FOR HYPOALB) 9.6 mg/dL (8.5-10.1); COR NA(FOR HYPERGLY) 139 mmol/L (136-145); CREATININE 1.01 mg/dL (0.70-1.30); GLUCOSE 168 mg/dL (65-99); MAGNESIUM 1.9 mg/dL (2.0-2.9); POTASSIUM 3.7 mmol/L (3.5-5.1); SODIUM 137 mmol/L (136-145); TOTAL PROTEIN 7.2 g/dL (6.4-8.2); eGFR NON BLACK RACES > 60 (>60)
[2023-12-10 07:15] LABS: PLATELET MORPHOLOGY COMMENT NORMAL (NORMAL)
--- NOTE | 2023-12-10 07:54 | RAD ---
EXAM:CHEST, 1 VIEWHISTORY:DYSPNEA; CAD, HTN, DM, GERDCOMPARISON:12/07/2023TECHNIQUE:One viewFINDINGS:Cardiomegaly is present. No acute infiltrates. No pneumothorax. Small right effusion unchanged allowing for differences in technique. Hilar and mediastinal structures and bony structures are unchanged.IMPRESSION:Small right effusion unchanged.No new infiltrate or other change noted.THIS IS AN ELECTRONICALLY VERIFIED FINAL REPORT12/10/2023 7:43 AM - Electronically signed by Andrews Scherer MD
[2023-12-10 09:24] VITALS: BP 134/94; PULSE 100; RESP 22; TEMP 97.5
--- NOTE | 2023-12-10 14:33 | PCM.DCPLAN ---
DISCHARGE SUMMARY Admission Date Date of Admission: 12/06/23 Discharge Date Discharge Date: 12/10/23 Admission Diagnoses (1) Severe sepsis: Status: Acute (2) Pneumonia involving left lung: Status: Acute (3) Pleural effusion on right: Status: Acute (4) Asthma exacerbation: Status: Acute (5) Acute hypoxemic respiratory failure: Status: Acute (6) Hyperlipidemia: Status: Acute (7) Hypertensive heart disease: Status: Acute (8) Diabetes: Status: Acute (9) Smoker: Status: Acute Discharge Medications Discharge Medications: Home Medication List albuterol sulfate 2.5 mg/3 mL (0.083 %) solution for nebulization 2.5 mg continuous nebulization Q6H 12/06/23 [History] amlodipine 5 mg tablet 5 mg PO BID 12/06/23 [History] atorvastatin 40 mg tablet 40 mg PO QDAY 12/06/23 [History] dulaglutide 0.75 mg/0.5 mL subcutaneous pen injector (Trulicity) 0.75 mg subcut QWEEK 12/06/23 [History] fluticasone 100 mcg-salmeterol 50 mcg/dose blistr powdr for inhalation 1 ea inhalation BID 12/06/23 [History] hydralazine 25 mg tablet 25 mg PO TID 12/06/23 [History] losartan 25 mg tablet 50 mg PO QDAY 12/06/23 [History] metformin 500 mg tablet 500 mg PO BID 12/06/23 [History] metoprolol succinate 100 mg tablet,extended release 24 hr 100 mg PO BID 12/06/23 [History] rosuvastatin 40 mg tablet 40 mg PO QDAY 12/06/23 [History] tamsulosin 0.4 mg capsule 0.4 mg PO QDAY 12/06/23 [History] trazodone 100 mg tablet 200 mg PO QPM PRN 12/06/23 [History] Prescriptions: Hospital Course Vital Signs: Vital Signs Temperature 97.5 F Temperature 98.2 F Pulse Rate [Right Brachial] 100 Pulse Rate [Right Brachial] 97 Respiratory Rate 22 Respiratory Rate 20 Blood Pressure [Right Arm] 134/94 Blood Pressure [Right Arm] 173/100 O2 Sat by Pulse Oximetry 95 O2 Sat by Pulse Oximetry 96 O2 Sat by Pulse Oximetry 95 Latest Lab Results: Laboratory Last Values WBC 17.1 X10^3/uL (3.6-10.0) H 08/22/24 05:50 RBC 3.54 X10^6/uL (4.7-6.0) L 12/10/23 05:50 Hgb 11.7 g/dL (13.5-18.0) L 12/10/23 05:50 Hct 34.1 % (42.0-54.0) L 12/10/23 05:50 MCV 96.2 fL (80.0-100.0) 12/10/23 05:50 MCH 33.0 pg (27.0-34.0) 12/10/23 05:50 MCHC 34.3 g/dL (33.0-35.0) 12/10/23 05:50 RDW 14.5 % (11.6-16.5) 12/10/23 05:50 Plt Count 371 X10^3/uL (150.0-450.0) 12/10/23 05:50 Plt Count Comment Adequate (ADEQUATE) 12/10/23 05:50 MPV 7.3 fL (7.4-11.0) L 12/10/23 05:50 Neut % (Auto) 75.3 % (42.0-75.0) H 12/10/23 05:50 Lymph % (Auto) 14.0 % (21.0-51.0) L 12/10/23 05:50 [place] % (Auto) 10.1 % (0.0-13.0) 12/10/23 05:50 Eos % (Auto) 0.1 % (0.9-2.9) L 12/10/23 05:50 Baso % (Auto) 0.5 % (0.2-1.0) 12/10/23 05:50 Neut # (Auto) 12.9 x10^3/uL (2.2-4.8) H 12/10/23 05:50 Lymph # (Auto) 2.4 X10^3/uL (1.3-2.9) 12/10/23 05:50 [place] # (Auto) 1.7 x10^3/uL (0.3-0.8) H 12/10/23 05:50 Eos # (Auto) 0.0 x10^3/uL (0.0-0.2) 12/10/23 05:50 Baso # (Auto) 0.1 X10^3/uL (0.0-0.1) 12/10/23 05:50 Absolute Nucleated RBC 0.1 /100WBC 12/10/23 05:50 Total Counted 100 12/10/23 05:50 Neutrophils % (Manual) 76 % (39-76) 12/10/23 05:50 Band Neutrophils % 2 % (0-10) 12/09/23 05:53 Lymphocytes % (Manual) 10 % (13-43) L 12/10/23 05:50 Monocytes % (Manual) 13 % (4-9) H 12/10/23 05:50 Eosinophils % (Manual) 1 % (0-6) 12/10/23 05:50 Basophils % (Manual) 1 % (0-1) 12/08/23 05:05 Metamyelocytes % Not Reportable 12/08/23 05:05 Plt Morphology Comment Normal (NORMAL) 12/10/23 05:50 RBC Morphology Normal (NORMAL) 12/10/23 05:50 PT 14.3 SECONDS (11.8-14.3) 12/07/23 00:38 INR Target Range - 12/07/23 00:38 INR 1.13 (0.8-1.3) 12/07/23 00:38 APTT 39.3 SECONDS (22.9-36.5) H 12/07/23 00:38 PTT Comment - 12/07/23 00:38 D-Dimer 3.24 ug/ml (0.0-0.57) H 12/07/23 00:38 Sample Site Lr 12/07/23 00:19 ABG pH 7.440 (7.35-7.45) 12/07/23 00:19 ABG pCO2 37.0 mmHg (35.0-45.0) 12/07/23 00:19 ABG pO2 79.0 mmHg (80.0-100.0) L 12/07/23 00:19 ABG HCO3 25.1 mmol/L (22-26) 12/07/23 00:19 ABG O2 Saturation 96.0 % (90-100) 12/07/23 00:19 ABG Base Excess 1.1 mmol/L (-2.0-2.0) 12/07/23 00:19 Rob Test Pos 12/07/23 00:19 A-a Gradient 74.0 mmHg 12/07/23 00:19 FiO2 28.0 12/07/23 00:19 Blood Gas Comments Alex well ae 12/07/23 00:19 Sodium 137 mmol/L (136-145) 12/10/23 05:50 Corrected Sodium 139 mmol/L (136-145) 12/10/23 05:50 Potassium 3.7 mmol/L (3.5-5.1) 12/10/23 05:50 Chloride 102 mmol/L (98-107) 12/10/23 05:50 Carbon Dioxide 26.6 mmol/L (21-32) 12/10/23 05:50 BUN 10 mg/dL (7-18) 12/10/23 05:50 Creatinine 1.01 mg/dL (0.70-1.30) 12/10/23 05:50 Est GFR (MDRD) Af Amer > 60 (>60) 12/10/23 05:50 Est GFR (MDRD) Non-Af > 60 (>60) 12/10/23 05:50 Glucose 168 mg/dL (65-99) H 12/10/23 05:50 POC Glucose (mg/dL) 167 mg/dL (65-99) H 12/10/23 06:36 Calcium 8.5 mg/dL (8.5-10.1) 12/10/23 05:50 Corrected Calcium 9.6 mg/dL (8.5-10.1) 12/10/23 05:50 Magnesium 1.9 mg/dL (2.0-2.9) L 12/10/23 05:50 Total Bilirubin 0.20 mg/dL (0.2-1.0) 12/10/23 05:50 AST 13 Units/L (15-37) L 12/10/23 05:50 ALT 32 Units/L (12-78) 12/10/23 05:50 Alkaline Phosphatase 112 Units/L (46-116) 12/10/23 05:50 Creatine Kinase 216 Units/L (39-308) 12/07/23 00:38 Troponin I High Sens 16.3 ng/L (4.0-60.0) 12/07/23 06:08 B-Natriuretic Peptide 5.3 pg/mL (0-79) 12/07/23 00:38 Total Protein 7.2 g/dL (6.4-8.2) 12/10/23 05:50 Albumin 2.6 g/dL (3.4-5.0) L 12/10/23 05:50 Globulin 4.6 g/dL (2.5-4.5) H 12/10/23 05:50 Albumin/Globulin Ratio 0.6 Ratio (1.1-2.1) L 12/10/23 05:50 Amylase 61 Units/L (25-115) 12/07/23 00:38 Lipase 34 Units/L (16-77) 12/07/23 00:38 SARS-CoV-2 (PCR) Negative (NEGATIVE) 12/07/23 00:05 Influenza Type A (PCR) Negative (NEGATIVE) 12/07/23 00:05 Influenza Type B (PCR) Negative (NEGATIVE) 12/07/23 00:05 RSV (PCR) Negative (NEGATIVE) 12/07/23 00:05 Resp Viral Panel (PCR) See scanned report 12/07/23 07:13 Hospital Course: Patient admitted from home via the ER due to asthma exacerbation, community- acquired pneumonia, and right pleural effusion. His pneumonia was located in the left lower lobe and was found to be secondary to Mycoplasma pneumoniae along with group B strep on culture. He was already on antibiotics that covered it and was showing improvement during stay. He eventually was able to tolerate not being on oxygen along with oral medications. He was discharged home to complete a 10-day course and to continue home nebulizers and inhalers. Day of discharge CXR showed improved infusion but still present. He will need to have follow-up with his PCP next week to confirm continuing improvement or resolution. Patient discharged in stable, improved condition with no O2 and plans for home antibiotic PO therapy.
== END 2023-12-10 11:14 | disposition home or self-care (01) ==
LOC: ER 23:36 → MED/SURG 23:36
PROVIDERS: ADMIT Family Medicine; ATTEND Family Medicine
DX: D68.9 Coagulation defect, unspecified; R07.89 Other chest pain; Z20.822 Contact with and (suspected) exposure to COVID-19; J90 Pleural effusion, not elsewhere classified; I11.9 Hypertensive heart disease without heart failure; I25.10 Atherosclerotic heart disease of native coronary artery without angina pectoris; J96.01 Acute respiratory failure with hypoxia; E11.9 Type 2 diabetes mellitus without complications; J45.901 Unspecified asthma with (acute) exacerbation; R79.89 Other specified abnormal findings of blood chemistry; Z72.0 Tobacco use; F20.9 Schizophrenia, unspecified; J16.8 Pneumonia due to other specified infectious organisms